=== PATIENT | male | born 1955 | race Caucasian/White ===

== ENCOUNTER → 2016-12-11 | Outpatient (CLI) | payer OTHER ==
--- NOTE | ~2016-12-11 | MR103 ---
[facility] A Service of [facility] & [facility] RADIOLOGY TEXT RESULTS PATIENT: HUANG VILLA III LOCATION: [facility] : 59 UNIT #: [id number] AGE: [address]: Zi Brito MD SEX: M ORDER DR: [id number] [place] [id number] O MR#: [id number] Acc #: [id number] NAME: HUANG VILLA : 1955 SEX: M STUDY DATE/TIME: 12/11/2016 11:25 UNIT: [facility] ROOM: STUDY DESCRIPTION: MR Knee Wo Contrast Lt Attending Physician: Zi Brito M.D. Referring Physician: Zi Brito M.D. Ordering Physician: Zi Brito M.D. Primary Care Physician: Prince Villa II, M.D. MRI CENTER REPORT This report is preliminary unless electronic signature is present. EXAM MRI of the left knee without contrast. HISTORY 61-year-old male with generalized left knee pain, pain for approximately 5 years, denies having injury. States he used to play a lot of sports and has had multiple knee surgeries for torn meniscus. Surgery in 2012, 2014, and 2016. No details provided. Patient complains of swelling and difficulty bearing weight. COMPARISON MRI of the left knee 02/13/2016, left knee films 08/29/2016. FINDINGS Multiplanar, multiecho imaging was performed of the left knee utilizing a high field magnet and dedicated protocol. The examination demonstrates diffuse multifocal chondromalacia with a foci of [id number] grade chondromalacia lateral femoral condyle and lateral tibial plateau. Diffuse articular cartilage thinning medial compartment as well as moderate-grade chondromalacia deep trochlear groove. Minimal knee effusion. No significant subchondral edema. Similar to the prior study, there is enthesopathic cystic change and edema at the root attachment posterior horn medial meniscus. There is extensive loss of meniscal volume within the medial meniscus compatible with a prior partial meniscectomy. The lateral meniscus demonstrates progressive degeneration of the posterior horn meniscal remnant and a horizontal cleavage tear midbody segment within the meniscal remnant. Both the anterior and posterior cruciate ligament demonstrates some thickening and increased signal suggesting mucinous degeneration. Medial collateral ligament and lateral collateral ligament complex appears STS. [facility] A Service of [facility] & [facility] RADIOLOGY TEXT RESULTS PATIENT: HUANG VILLA III LOCATION: [facility] : 59 UNIT #: [id number] AGE: [address]: Zi Brito MD SEX: M ORDER DR: normal. The extensor mechanism unremarkable. Extraarticular soft tissues appear normal with the exception of anterior knee edema. IMPRESSION 1. Morphologic changes within both menisci consistent with prior partial meniscectomies with extensive debridement of the medial meniscus. Continued degeneration within the posterior horn remnant of the lateral meniscus as well as a suspected horizontal cleavage tear midbody segment of the lateral meniscus. This appears progressed from the February 2016 study. 2. Multifocal chondromalacia with 1.3 cm focus of moderate-grade chondromalacia deep trochlear groove. This has shown some progression from the February 2016 study. 3. Enthesopathic marrow changes posterior tibial eminence near the root attachment posterior horn medial meniscus and insertion of the PCL. Dictated by... Peterson Lawrence M.D. THIS IS AN ELECTRONICALLY VERIFIED REPORT Peterson Lawrence M.D. at 12/12/2016 5:19 PM SINDY/diamond TD: 12/12/2016 02:00 JOB #: [id number] MRI CENTER REPORT Page 1 of 1
== END | disposition home or self-care (01) ==
LOC: SMRI 10:29
DX: M25.562 Pain in left knee (principal); M17.12 Unilateral primary osteoarthritis, left knee; M94.262 Chondromalacia, left knee; M25.862 Other specified joint disorders, left knee
CPT/HCPCS: 73721